=== PATIENT | male | born 1940 | race African-American/Black ===

== ENCOUNTER 2021-02-09 13:06 | Inpatient (IN) | payer MEDICARE ==
[~2021-02-09] VITALS: Ht 177.8 cm; Wt 87.2 kg
[2021-02-09] MEDS ORDERED: DIPH,PERTUSS(ACELL),TET VAC/PF 0.5 ML SYRINGE. VAX IM ONE (13:30)
--- NOTE | 2021-02-09 13:37 | ED.ADGEN ---
Past Medical History Past Surgical History: No Surgical History Smoking Status: Never Smoker Alcohol Use: None General Adult EDM: Chief Complaint: SYNCOPE HPI: HPI: Patient is a 80 year old male coming in via EMS after syncopal episode. Josee mayfield was going to the grocery store and out of his car and walking back up where he lives and was almost to the doors when he collapsed. Patient states he felt lightheaded prior to falling. Unknown downtime but per EMS report possibly unresponsive for a couple of minutes, no convulsions noted by bystanders. Patient states he otherwise has been feeling well. Had a similar episode about 20 years ago. Patient has a history of hypertension but does not reverse medication he takes. Patient is bradycardic on exam patient states he does not know his normal resting heart rate. Review of Systems: Review of Systems: All other systems within normal limits except for as noted in the HPI Current Medications: Current Medications Medications (Trade) Dose Ordered Sig/Devin Start Time Stop Time Status Last Admin Dose Admin Acetaminophen (Tylenol) 650 mg PRN Q4HRS PRN 02/09/21 17:15 02/10/21 17:14 Diphtheria/ Tetanus/Acell Pertussis (ADACEL TDap SYRINGE) 0.5 ml ONCE ONCE 02/09/21 13:30 02/09/21 15:07 DC 02/09/21 13:30 0.5 ML Fentanyl Citrate (Fentanyl 2ml Vial) 50 mcg PRN Q1HR PRN 02/09/21 17:15 02/10/21 17:14 Ondansetron HCl (Zofran) 4 mg PRN Q8HRS PRN 02/09/21 17:15 02/10/21 17:14 Allergies: Allergies: Allergies Coded Allergies Type Severity Reaction Last Updated Verified No Known Drug Allergies 02/09/21 No Physical Exam: PE: Constitutional: Well developed, well nourished, no acute distress, non-toxic appearance. [] HENT: Normocephalic, small right forehead hematoma, bilateral external ears normal, nose normal. [] Eyes: PERRLA, conjunctiva normal, no discharge. [] Neck: No rigidity, supple, no stridor. [] Cardiovascular: Regular rate and rhythm, brisk cap refill [] Lungs & Thorax: Non labored symmetric respirations, no tachypnea or respiratory distress [] Abdomen: Soft, nondistended. Skin: Warm, dry, no erythema, no rash. Superficial linear abrasion on right orthodox, approximately 1 cm [] Back: Unremarkable Extremities: No deformities, range of motion grossly intact, no lower extremity edema [] Neurologic: Alert and oriented X 3, no focal deficits noted. [] Psychologic: Affect normal, judgement normal, mood normal. [] Current Patient Data: Labs: Laboratory Tests Test 02/09/21 13:14 02/09/21 15:23 White Blood Count 3.6 x10^3/uL (4.0-11.0) L Red Blood Count 4.56 x10^6/uL (4.30-5.70) Hemoglobin 13.2 g/dL (13.0-17.5) Hematocrit 38.7 % (39.0-53.0) L Mean Corpuscular Volume 85 fL (79-100) Mean Corpuscular Hemoglobin 29 pg (25-35) Mean Corpuscular Hemoglobin Concent 34 g/dL (31-37) Red Cell Distribution Width 14.7 % (11.5-14.5) H Platelet Count 118 x10^3/uL (140-400) L Neutrophils (%) (Auto) 41 % (31-73) Lymphocytes (%) (Auto) 45 % (24-48) Monocytes (%) (Auto) 13 % (0-9) H Eosinophils (%) (Auto) 2 % (0-3) Basophils (%) (Auto) 1 % (0-3) Neutrophils # (Auto) 1.5 x10^3/uL (1.8-7.7) L Lymphocytes # (Auto) 1.6 x10^3/uL (1.0-4.8) Monocytes # (Auto) 0.4 x10^3/uL (0.0-1.1) Eosinophils # (Auto) 0.1 x10^3/uL (0.0-0.7) Basophils # (Auto) 0.0 x10^3/uL (0.0-0.2) Sodium Level 141 mmol/L (136-145) Potassium Level 3.4 mmol/L (3.5-5.1) L Chloride Level 103 mmol/L (98-107) Carbon Dioxide Level 29 mmol/L (21-32) Anion Gap 9 (6-14) Blood Urea Nitrogen 23 mg/dL (8-26) Creatinine 1.8 mg/dL (0.7-1.3) H Estimated GFR (Cockcroft-Gault) 36.7 BUN/Creatinine Ratio 13 (6-20) Glucose Level 97 mg/dL (70-99) Calcium Level 8.5 mg/dL (8.5-10.1) Phosphorus Level 3.1 mg/dL (2.6-4.7) Magnesium Level 2.0 mg/dL (1.8-2.4) Total Bilirubin 0.6 mg/dL (0.2-1.0) Aspartate Amino Transferase (AST) 21 U/L (15-37) Alanine Aminotransferase (ALT) 23 U/L (16-63) Alkaline Phosphatase 92 U/L (46-116) Troponin I Quantitative < 0.017 ng/mL (0.000-0.055) VR-Yfs-W-Type Natriuretic Peptide 492 pg/mL (0-449) H Total Protein 7.3 g/dL (6.4-8.2) Albumin 3.5 g/dL (3.4-5.0) Albumin/Globulin Ratio 0.9 (1.0-1.7) L Urine Collection Type Unknown Urine Color Yellow Urine Clarity Cloudy Urine pH 5.5 (<5.0-8.0) Urine Specific Casco 1.010 (1.000-1.030) Urine Protein Negative mg/dL (NEG-TRACE) Urine Glucose (UA) Negative mg/dL (NEG) Urine Ketones (Stick) Negative mg/dL (NEG) Urine Blood Negative (NEG) Urine Nitrite Negative (NEG) Urine Bilirubin Negative (NEG) Urine Urobilinogen Dipstick 0.2 mg/dL (0.2 mg/dL) Urine Leukocyte Esterase Negative (NEG) Urine RBC 0 /HPF (0-2) Urine WBC 0 /HPF (0-4) Urine Squamous Epithelial Cells Few /LPF Urine Bacteria 0 /HPF (0-FEW) Laboratory Tests 02/09/21 13:14 Laboratory Tests 02/09/21 13:14 Vital Signs: Vital Signs Date Time Temp Pulse Resp B/P (MAP) Pulse Ox O2 Delivery O2 Flow Rate FiO2 02/09/21 16:09 52 16 159/68 (98) 94 Room Air 02/09/21 13:20 98.2 98.2 EKG: EKG: Sinus rhythm, heart rate 52 bpm, normal axis, no ST elevation or depression, poor R wave progression, flattening of T waves diffusely [] Heart Score: C/O Chest Pain: No HEART Score for Chest Pain: HEART Score for Chest Pain Response (Comments) Value History Slighlty/Non-Suspicious 0 ECG Nonspecific Repolarizatio 1 Age > 65 2 Risk Factors 1 or 2 Risk Factors 1 Troponin < Normal Limit 0 Total 4 Risk Factors: Risk Factors: DM, Current or recent (<one month) smoker, HTN, HLP, family history of CAD, obesity. Risk Scores: Score 0 - 3: 2.5% MACE over next 6 weeks - Discharge Home Score 4 - 6: 20.3% MACE over next 6 weeks - Admit for Clinical Observation Score 7 - 10: 72.7% MACE over next 6 weeks - Early Invasive Strategies Radiology/Procedures: Radiology/Procedures: [facility] [address] [place] [address] IMAGING REPORT Signed PATIENT: LUDWIG RAMIREZ ACCOUNT: [id number] : 1940 LOCATION: ER AGE: 80 SEX: M EXAM STATUS: REG ER ORD. PHYSICIAN: JASON LARES MD REASON: syncope PROCEDURE: CT HEAD AND CERVICAL SPINE WO CT HEAD AND C-SPINE WO History: syncope Comparison: None. Technique: Noncontrast CT of the head and cervical spine. Findings: CT HEAD: There is no evidence for intracranial mass or hemorrhage. There is no hydrocephalus or midline shift. No abnormal extra-axial fluid collections are present. No evidence of acute territorial infarction. There are left frontal and left parietal regions of encephalomalacia. The visualized paranasal sinuses and mastoid air cells are clear. The skull and scalp are within normal limits. CT CERVICAL SPINE: There is no evidence for fracture in the cervical spine. Alignment is normal. Severe degenerative disc space narrowing C5-C6 and C6-C7 with multilevel uncovertebral hypertrophy and facet hypertrophy. Severe neural foraminal stenosis bilaterally at C5-C6. No destructive osseous lesions are seen. Left carotid atherosclerotic calcification. Impression: 1. No acute intracranial findings. 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 2. No acute osseous abnormality in the cervical spine. Multilevel degenerative changes with severe bilateral foraminal stenosis at C5-C6. ------- Exposure: One or more of the following individualized dose reduction techniques were utilized for this examination: 1. Automated exposure control 2. Adjustment of the mA and/or kV according to patient size 3. Use of iterative reconstruction technique. Electronically signed by: Rogers Batres MD (02/09/2021 2:50 PM) [id number] DICTATED and SIGNED BY: ROGERS BATRES MD DATE: 02/09/21 [id number] 0 [] [facility] [address] [place] [address] IMAGING REPORT Signed PATIENT: LUDWIG RAMIREZ ACCOUNT: [id number] : 1940 LOCATION: ER AGE: 80 SEX: M EXAM STATUS: PRE ER ORD. PHYSICIAN: JASON LARES MD REASON: syncope PROCEDURE: CHEST AP ONLY INDICATION: Reason: syncope / Spl. Instructions: / History: COMPARISON: None. FINDINGS: Single view of chest obtained. Elevated right hemidiaphragm. Cardiac mediastinal silhouette is unremarkable. Mild haziness at the left lung base. IMPRESSION: * Mild hazy opacity at the left lung base which could be secondary to overlap of structures and atelectasis but this could obscure a region of early infilt rate. * Elevated right hemidiaphragm. Electronically signed by: Herb Razo MD (02/09/2021 2:29 PM) [id number] DICTATED and SIGNED BY: HERB RAZO MD DATE: 02/09/21 [id number] 0 Course & Med Decision Making: Course & Med Decision Making Pertinent Labs and Imaging studies reviewed. (See chart for details) Patient states bradycardic in the 40s in the emergency department with a stable blood pressure. Patient has superficial wound to right temporal area L does not require suturing. CT head negative for any acute fracture. Due to syncopal episode and and patient's age will admit for observation. Tetanus updated emergency department [] Ana Disclaimer: Ana Disclaimer: This electronic medical record was generated, in whole or in part, using a voice recognition dictation system. Departure Departure Impression: Primary Impression: Syncope and collapse Additional Impressions: Bradycardia Abrasion of face Disposition: ADMITTED INPATIENT Admitting Physician: ANASTASIIA Condition: STABLE Problem Qualifiers JASON LARES MD Feb 09, 2021 13:37
[2021-02-09 13:51] LABS: BASO % 1 % (0-3); EOS # 0.1 x10^3/uL (0.0-0.7); EOS % 2 % (0-3); HEMATOCRIT 38.7 % (39.0-53.0); HEMOGLOBIN 13.2 g/dL (13.0-17.5); LYMPH # 1.6 x10^3/uL (1.0-4.8); LYMPH % 45 % (24-48); MEAN CORPUSCULAR HEMOGLOBIN 29 pg (25-35); MEAN CORPUSCULAR HGB CONC 34 g/dL (31-37); MEAN CORPUSCULAR VOLUME 85 fL (79-100); MONO # 0.4 x10^3/uL (0.0-1.1); MONO % 13 % (0-9); NEUT # 1.5 x10^3/uL (1.8-7.7); NEUT % 41 % (31-73); PLATELET COUNT 118 x10^3/uL (140-400); RED BLOOD COUNT 4.56 x10^6/uL (4.30-5.70); RED CELL DISTRIBUTION WIDTH 14.7 % (11.5-14.5); WHITE BLOOD COUNT 3.6 x10^3/uL (4.0-11.0)
[2021-02-09 14:04] LABS: CALCIUM 8.5 mg/dL (8.5-10.1); CREATININE 1.8 mg/dL (0.7-1.3); GFR 36.7; POTASSIUM 3.4 mmol/L (3.5-5.1)
[2021-02-09 14:10] LABS: ALBUMIN 3.5 g/dL (3.4-5.0); ALBUMIN/GLOBULIN RATIO 0.9 (1.0-1.7); PHOSPHORUS 3.1 mg/dL (2.6-4.7); TOTAL BILIRUBIN 0.6 mg/dL (0.2-1.0); TOTAL PROTEIN 7.3 g/dL (6.4-8.2)
--- NOTE | 2021-02-09 14:31 | RAD ---
INDICATION: Reason: syncope / Spl. Instructions: / History: COMPARISON: None. FINDINGS: Single view of chest obtained. Elevated right hemidiaphragm. Cardiac mediastinal silhouette is unremarkable. Mild haziness at the left lung base. IMPRESSION: * Mild hazy opacity at the left lung base which could be secondary to overlap of structures and atel ectasis but this could obscure a region of early infiltrate. * Elevated right hemidiaphragm. Electronically signed by: Josef Hudson MD (02/09/2021 2:29 PM) [id number]
--- NOTE | 2021-02-09 14:55 | RAD ---
CT HEAD AND C-SPINE WO History: syncope Comparison: None. Technique: Noncontrast CT of the head and cervical spine. Findings: CT HEAD: There is no evidence for intracranial mass or hemorrhage. There is no hydrocephalus or midline shift. No abnormal extra-axial fluid collections are present. No evidence of acute territorial infarction. There are left frontal and left parietal regions of ence phalomalacia. The visualized paranasal sinuses and mastoid air cells are clear. The skull and scalp are within normal limits. CT CERVICAL SPINE: There is no evidence for fracture in the cervical spine. Alignment is normal. Severe degenerative disc space narrowing C5-C6 and C6-C7 with multilevel uncovertebral hypertrophy an d facet hypertrophy. Severe neural foraminal stenosis bilaterally at C5-C6. No destructive osseous lesions are seen. Left carotid atherosclerotic calcification. Impression: 1. No acute intracranial findings. 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 2. No acute osseous abnormality in the cervical spine. Multilevel degenerative changes with severe b ilateral foraminal stenosis at C5-C6. ------- Exposure: One or more of the following individualized dose reduction techniques were utilized for thi s examination: 1. Automated exposure control 2. Adjustment of the mA and/or kV according to patient size 3. Use of iterative reconstruction technique. Electronically signed by: Rogers Mills MD (02/09/2021 2:50 PM) [id number]
[2021-02-09 15:36] LABS: BILIRUBIN,URINE NEGATIVE (NEG); CLARITY,URINE CLOUDY; COLOR,URINE YELLOW; NITRITE,URINE NEGATIVE (NEG); PH,URINE 5.5 (<5.0-8.0); PROTEIN,URINE NEGATIVE (NEG-TRACE); UROBILINOGEN,URINE 0.2 mg/dL (0.2 mg/dL)
[2021-02-09 15:48] LABS: BACTERIA,URINE 0 /HPF (0-FEW); RBC,URINE 0 /HPF (0-2); WBC,URINE 0 /HPF (0-4)
[2021-02-09] MEDS ORDERED: ONDANSETRON PF 4 MG/2 ML VIAL. IVP PRN (17:15)
[2021-02-09] MEDS ORDERED: ACETAMINOPHEN 325 MG TABLET. PO PRN (17:15)
[2021-02-09] MEDS ORDERED: fentaNYL PF VIAL 100 MCG/2 ML VIAL IVP PRN (17:15)
[2021-02-09] MEDS ORDERED: POTASSIUM CHLORIDE 20 MEQ TABLET.ER. PO ONE (19:15)
--- NOTE | 2021-02-09 19:55 | HP ---
DATE OF SERVICE: 02/09/2021 ADMIT DATE: 02/09/2021 CHIEF COMPLAINT: Syncope. HISTORY OF PRESENT ILLNESS: The patient is a pleasant 80-year-old male who was walking to the store and had a syncopal episode. EMS was called. He is now being brought to our Emergency Room for evaluation. I discussed the case with ER physician. The patient is having some bradycardia. We are going to admit the patient and consult Cardiology. PAST MEDICAL HISTORY: Hypertension, chronic pain. ALLERGIES: NONE. FAMILY HISTORY: Diabetes. SOCIAL HISTORY: Does not drink, smoke or take drugs. MEDICATIONS: Reviewed, please refer to the MRAD. REVIEW OF SYSTEMS: GENERAL: No history of weight change, weakness or fevers. SKIN: No bruising, hair changes or rashes. EYES: No blurred, double or loss of vision. NOSE AND THROAT: No history of nosebleeds, hoarseness or sore throat. HEART: No history of palpitations, chest pain or shortness of breath on exertion. LUNGS: Denies cough, hemoptysis, wheezing or shortness of breath. GASTROINTESTINAL: Denies changes in appetite, nausea, vomiting, diarrhea or constipation. GENITOURINARY: No history of frequency, urgency, hesitancy or nocturia. NEUROLOGIC: Denies history of numbness, tingling, tremor or weakness. PSYCHIATRIC: No history of panic, anxiety or depression. ENDOCRINE: No history of heat or cold intolerance, polyuria or polydipsia. EXTREMITIES: Denies muscle weakness, joint pain, pain on walking or stiffness. PHYSICAL EXAMINATION: VITALS: Within normal limits and are stable. GENERAL: No apparent distress. Alert and oriented. HEENT: Normal cephalic atraumatic, external auditory canals are patent. EYES: Extraocular muscles are intact, pupils are equally round and reactive to light and accommodation. MUSCULOSKELETAL: Well developed, well nourished, good range of motion. ENDOCRINE: No thyromegaly was palpated. LYMPHATICS: No cervical chain or axillary nodes were noted. HEMATOPOIETIC: No bruising. NECK: Supple, no JVD, no thyromegaly was noted. LUNGS: Clear to auscultation in all lung rossi without rhonchi or wheezing. HEART: RRR, S1, S2 present. Peripheral pulses intact, no obvious murmurs were noted. ABDOMEN: Soft, nontender. Positive bowel sounds no organomegaly, normal bowel sounds. EXTREMITIES: Without any cyanosis, clubbing, or edema. Pedal pulses intact, Homans sign is negative. NEUROLOGIC: Normal speech, normal tone. A and O x3, moves all extremities, no obvious focal deficits. PSYCHIATRIC: Normal affect, normal mood. Stable. SKIN: No ulcerations or rashes, good skin turgor, no jaundice. VASCULAR: Good capillary refill, neurovascular bundle appears to be intact. LABORATORY DATA: White count is 3.6, hemoglobin 13.2. Electrolytes normal other than a creatinine of 1.8 and a potassium of 3.4. Urinalysis negative. ASSESSMENT AND PLAN: Syncope. The patient has been admitted. We will consult Cardiology, cardiac monitoring, home meds, DVT prophylaxis, full code, replace his potassium. Consult Nephrology. SHAKIR/FELICIANO/JOHNNY DR: SHAKIR/angel TID: [id number]
[2021-02-09 20:55] VITALS: BP 172/75
[2021-02-09 22:29] VITALS: BP 161/72
[2021-02-10 02:34] VITALS: BP 131/62
[2021-02-10 08:18] LABS: BASO % 1 % (0-3); EOS % 0 % (0-3); HEMATOCRIT 37.4 % (39.0-53.0); HEMOGLOBIN 12.4 g/dL (13.0-17.5); LYMPH # 0.8 x10^3/uL (1.0-4.8); LYMPH % 20 % (24-48); MEAN CORPUSCULAR HEMOGLOBIN 28 pg (25-35); MEAN CORPUSCULAR HGB CONC 33 g/dL (31-37); MEAN CORPUSCULAR VOLUME 86 fL (79-100); MONO # 0.5 x10^3/uL (0.0-1.1); MONO % 13 % (0-9); NEUT # 2.7 x10^3/uL (1.8-7.7); NEUT % 66 % (31-73); PLATELET COUNT 114 x10^3/uL (140-400); RED BLOOD COUNT 4.37 x10^6/uL (4.30-5.70); RED CELL DISTRIBUTION WIDTH 14.4 % (11.5-14.5); WHITE BLOOD COUNT 4.1 x10^3/uL (4.0-11.0)
[2021-02-10 08:37] LABS: CALCIUM 8.6 mg/dL (8.5-10.1); CREATININE 1.5 mg/dL (0.7-1.3); GFR 54.8; POTASSIUM 3.7 mmol/L (3.5-5.1)
[2021-02-10 08:45] VITALS: BP 140/53
--- NOTE | 2021-02-10 10:10 | PDOC2 ---
CONSULT Date of Consult Date of Consult DATE: 02/10/21 TIME: 10:10 Reason for Consult Reason for Consult: PONCHO Identification/Chief Complaint Chief Complaint No complaints at present, states he hopes he can be discharged home today Source Source: Chart review, Patient History of Present Illness Reason for Visit: Patient is a 80 year old AA male came to ER via EMS after syncopal episode. Patient was going to the grocery store and out of his car and walking back up where he lives and was almost to the doors when he collapsed. Patient states he felt lightheaded prior to falling. Unknown downtime but per EMS report possibly unresponsive for a couple of minutes, no convulsions noted by bystanders. Patient states he otherwise has been feeling well. Had a similar episode about 20 years ago. Patient has a history of hypertension . Patient was bradycardic in the ER He denies any N/V/D.No F/C. Denies any CP or SOB. Denies any urinary complaints, not aware of any Dx of CKD . Denies Kidney stones . No recent med changes . Denies use of NSAID's Denies any LE edema , No ANGELO or Visual changes . Denies any OTC health supplements Past Medical History Past Medical History Cardiovascular: HTN, Hyperlipidemia Musculoskeletal: Osteoarthritis Renal/: Benign prostatic enlarg. Endocrine: Diabetes Family History Family History noncontributory Social History Social History Smoke: Quit ALCOHOL: none Drugs: None Lives: with Family Current Problem List Problem List Problems Medical Problems: (1) Abrasion of face Status: Acute (2) Bradycardia Status: Acute (3) Syncope and collapse Status: Acute Current Medications Current Medications Current Medications Diphtheria/ Tetanus/Acell Pertussis (ADACEL TDap SYRINGE) 0.5 ml ONCE ONCE VAX IM Last administered on 02/09/21at 13:30; Start 02/09/21 at 13:30; Stop 02/09/21 at 15:07; Status DC Ondansetron HCl (Zofran) 4 mg PRN Q8HRS PRN IVP NAUSEA/VOMITING; Start 02/09/21 at 17:15; Stop 02/10/21 at 17:14 Fentanyl Citrate (Fentanyl 2ml Vial) 50 mcg PRN Q1HR PRN IVP PAIN; Start 02/09/21 at 17:15; Stop 02/10/21 at 17:14 Acetaminophen (Tylenol) 650 mg PRN Q4HRS PRN PO FEVER > 100.3'F; Start 02/09/21 at 17:15; Stop 02/10/21 at 17:14 Potassium Chloride (Klor-Con) 40 meq 1X ONCE PO Last administered on 02/09/21at 20:06; Start 02/09/21 at 19:15; Stop 02/09/21 at 19:16; Status DC Allergies Allergies: Coded Allergies: No Known Drug Allergies (Unverified , 02/09/21) ROS Review of System As per HPI, rest of the ROS is negative Physical Exam Physical Exam General NAD , sitting up in chair HEEN OM moist; superficial wound to right temporal area dressing on . neck Supple Lungs CTA, Non labored CV S1S2 Abd Soft, NT, BS + Ext No Edema, No cyanosis Neuro Grossly normal, No focal deficit Psych Mood stable, Cooperative No Kang, No CVA or SP tenderness Vital Signs Vital Signs Date Time Temp Pulse Resp B/P (MAP) Pulse Ox O2 Delivery O2 Flow Rate FiO2 02/10/21 08:45 97.8 52 18 140/53 (82) 97 Room Air 97.8 Assessment & Plan PONCHO- Vasomotor ,Improving renal function , UA unremarkable. . E-Lytes stable. Baseline Creat unknown to me, he is a [place] [facility] ; Supportive care, maintain hydration , avoid Nephrotoxins , strict I/O , Syncopal episode- cardiology consulted Sinus bradycardia; on Cardizem at home Hypertension Diabetes, II Labs Labs Laboratory Tests Test 02/09/21 13:14 02/09/21 15:23 02/09/21 18:00 02/09/21 19:00 White Blood Count 3.6 x10^3/uL (4.0-11.0) Red Blood Count 4.56 x10^6/uL (4.30-5.70) Hemoglobin 13.2 g/dL (13.0-17.5) Hematocrit 38.7 % (39.0-53.0) Mean Corpuscular Volume 85 fL (79-100) Mean Corpuscular Hemoglobin 29 pg (25-35) Mean Corpuscular Hemoglobin Concent 34 g/dL (31-37) Red Cell Distribution Width 14.7 % (11.5-14.5) Platelet Count 118 x10^3/uL (140-400) Neutrophils (%) (Auto) 41 % (31-73) Lymphocytes (%) (Auto) 45 % (24-48) Monocytes (%) (Auto) 13 % (0-9) Eosinophils (%) (Auto) 2 % (0-3) Basophils (%) (Auto) 1 % (0-3) Neutrophils # (Auto) 1.5 x10^3/uL (1.8-7.7) Lymphocytes # (Auto) 1.6 x10^3/uL (1.0-4.8) Monocytes # (Auto) 0.4 x10^3/uL (0.0-1.1) Eosinophils # (Auto) 0.1 x10^3/uL (0.0-0.7) Basophils # (Auto) 0.0 x10^3/uL (0.0-0.2) Sodium Level 141 mmol/L (136-145) Potassium Level 3.4 mmol/L (3.5-5.1) Chloride Level 103 mmol/L (98-107) Carbon Dioxide Level 29 mmol/L (21-32) Anion Gap 9 (6-14) Blood Urea Nitrogen 23 mg/dL (8-26) Creatinine 1.8 mg/dL (0.7-1.3) Estimated GFR (Cockcroft-Gault) 36.7 BUN/Creatinine Ratio 13 (6-20) Glucose Level 97 mg/dL (70-99) Calcium Level 8.5 mg/dL (8.5-10.1) Phosphorus Level 3.1 mg/dL (2.6-4.7) Magnesium Level 2.0 mg/dL (1.8-2.4) Total Bilirubin 0.6 mg/dL (0.2-1.0) Aspartate Amino Transf (AST/SGOT) 21 U/L (15-37) Alanine Aminotransferase (ALT/SGPT) 23 U/L (16-63) Alkaline Phosphatase 92 U/L (46-116) Troponin I Quantitative < 0.017 ng/mL (0.000-0.055) XJ-Imv-M-Type Natriuretic Peptide 492 pg/mL (0-449) Total Protein 7.3 g/dL (6.4-8.2) Albumin 3.5 g/dL (3.4-5.0) Albumin/Globulin Ratio 0.9 (1.0-1.7) Urine Collection Type Unknown Urine Color Yellow Urine Clarity Cloudy Urine pH 5.5 (<5.0-8.0) Urine Specific [place] 1.010 (1.000-1.030) Urine Protein Negative mg/dL (NEG-TRACE) Urine Glucose (UA) Negative mg/dL (NEG) Urine Ketones (Stick) Negative mg/dL (NEG) Urine Blood Negative (NEG) Urine Nitrite Negative (NEG) Urine Bilirubin Negative (NEG) Urine Urobilinogen Dipstick 0.2 mg/dL (0.2 mg/dL) Urine Leukocyte Esterase Negative (NEG) Urine RBC 0 /HPF (0-2) Urine WBC 0 /HPF (0-4) Urine Squamous Epithelial Cells Few /LPF Urine Bacteria 0 /HPF (0-FEW) SARS-CoV-2 RNA (ANJUM) Negative (Negative) SARS-CoV-2 Antigen (Rapid) Negative (NEGATIVE) Test 02/09/21 20:07 02/09/21 22:55 02/10/21 07:35 02/10/21 08:00 Troponin I Quantitative < 0.017 ng/mL (0.000-0.055) < 0.017 ng/mL (0.000-0.055) White Blood Count 4.1 x10^3/uL (4.0-11.0) Red Blood Count 4.37 x10^6/uL (4.30-5.70) Hemoglobin 12.4 g/dL (13.0-17.5) Hematocrit 37.4 % (39.0-53.0) Mean Corpuscular Volume 86 fL (79-100) Mean Corpuscular Hemoglobin 28 pg (25-35) Mean Corpuscular Hemoglobin Concent 33 g/dL (31-37) Red Cell Distribution Width 14.4 % (11.5-14.5) Platelet Count 114 x10^3/uL (140-400) Neutrophils (%) (Auto) 66 % (31-73) Lymphocytes (%) (Auto) 20 % (24-48) Monocytes (%) (Auto) 13 % (0-9) Eosinophils (%) (Auto) 0 % (0-3) Basophils (%) (Auto) 1 % (0-3) Neutrophils # (Auto) 2.7 x10^3/uL (1.8-7.7) Lymphocytes # (Auto) 0.8 x10^3/uL (1.0-4.8) Monocytes # (Auto) 0.5 x10^3/uL (0.0-1.1) Eosinophils # (Auto) 0.0 x10^3/uL (0.0-0.7) Basophils # (Auto) 0.0 x10^3/uL (0.0-0.2) Sodium Level 143 mmol/L (136-145) Potassium Level 3.7 mmol/L (3.5-5.1) Chloride Level 106 mmol/L (98-107) Carbon Dioxide Level 27 mmol/L (21-32) Anion Gap 10 (6-14) Blood Urea Nitrogen 14 mg/dL (8-26) Creatinine 1.5 mg/dL (0.7-1.3) Estimated GFR (Cockcroft-Gault) 54.8 Glucose Level 92 mg/dL (70-99) Calcium Level 8.6 mg/dL (8.5-10.1) Laboratory Tests Test 02/09/21 13:14 02/09/21 15:23 02/09/21 18:00 02/09/21 19:00 White Blood Count 3.6 x10^3/uL (4.0-11.0) Red Blood Count 4.56 x10^6/uL (4.30-5.70) Hemoglobin 13.2 g/dL (13.0-17.5) Hematocrit 38.7 % (39.0-53.0) Mean Corpuscular Volume 85 fL (79-100) Mean Corpuscular Hemoglobin 29 pg (25-35) Mean Corpuscular Hemoglobin Concent 34 g/dL (31-37) Red Cell Distribution Width 14.7 % (11.5-14.5) Platelet Count 118 x10^3/uL (140-400) Neutrophils (%) (Auto) 41 % (31-73) Lymphocytes (%) (Auto) 45 % (24-48) Monocytes (%) (Auto) 13 % (0-9) Eosinophils (%) (Auto) 2 % (0-3) Basophils (%) (Auto) 1 % (0-3) Neutrophils # (Auto) 1.5 x10^3/uL (1.8-7.7) Lymphocytes # (Auto) 1.6 x10^3/uL (1.0-4.8) Monocytes # (Auto) 0.4 x10^3/uL (0.0-1.1) Eosinophils # (Auto) 0.1 x10^3/uL (0.0-0.7) Basophils # (Auto) 0.0 x10^3/uL (0.0-0.2) Sodium Level 141 mmol/L (136-145) Potassium Level 3.4 mmol/L (3.5-5.1) Chloride Level 103 mmol/L (98-107) Carbon Dioxide Level 29 mmol/L (21-32) Anion Gap 9 (6-14) Blood Urea Nitrogen 23 mg/dL (8-26) Creatinine 1.8 mg/dL (0.7-1.3) Estimated GFR (Cockcroft-Gault) 36.7 BUN/Creatinine Ratio 13 (6-20) Glucose Level 97 mg/dL (70-99) Calcium Level 8.5 mg/dL (8.5-10.1) Phosphorus Level 3.1 mg/dL (2.6-4.7) Magnesium Level 2.0 mg/dL (1.8-2.4) Total Bilirubin 0.6 mg/dL (0.2-1.0) Aspartate Amino Transf (AST/SGOT) 21 U/L (15-37) Alanine Aminotransferase (ALT/SGPT) 23 U/L (16-63) Alkaline Phosphatase 92 U/L (46-116) Troponin I Quantitative < 0.017 ng/mL (0.000-0.055) DX-Udi-P-Type Natriuretic Peptide 492 pg/mL (0-449) Total Protein 7.3 g/dL (6.4-8.2) Albumin 3.5 g/dL (3.4-5.0) Albumin/Globulin Ratio 0.9 (1.0-1.7) Urine Collection Type Unknown Urine Color Yellow Urine Clarity Cloudy Urine pH 5.5 (<5.0-8.0) Urine Specific [place] 1.010 (1.000-1.030) Urine Protein Negative mg/dL (NEG-TRACE) Urine Glucose (UA) Negative mg/dL (NEG) Urine Ketones (Stick) Negative mg/dL (NEG) Urine Blood Negative (NEG) Urine Nitrite Negative (NEG) Urine Bilirubin Negative (NEG) Urine Urobilinogen Dipstick 0.2 mg/dL (0.2 mg/dL) Urine Leukocyte Esterase Negative (NEG) Urine RBC 0 /HPF (0-2) Urine WBC 0 /HPF (0-4) Urine Squamous Epithelial Cells Few /LPF Urine Bacteria 0 /HPF (0-FEW) SARS-CoV-2 RNA (ANJUM) Negative (Negative) SARS-CoV-2 Antigen (Rapid) Negative (NEGATIVE) Test 02/09/21 20:07 02/09/21 22:55 02/10/21 07:35 02/10/21 08:00 Troponin I Quantitative < 0.017 ng/mL (0.000-0.055) < 0.017 ng/mL (0.000-0.055) White Blood Count 4.1 x10^3/uL (4.0-11.0) Red Blood Count 4.37 x10^6/uL (4.30-5.70) Hemoglobin 12.4 g/dL (13.0-17.5) Hematocrit 37.4 % (39.0-53.0) Mean Corpuscular Volume 86 fL (79-100) Mean Corpuscular Hemoglobin 28 pg (25-35) Mean Corpuscular Hemoglobin Concent 33 g/dL (31-37) Red Cell Distribution Width 14.4 % (11.5-14.5) Platelet Count 114 x10^3/uL (140-400) Neutrophils (%) (Auto) 66 % (31-73) Lymphocytes (%) (Auto) 20 % (24-48) Monocytes (%) (Auto) 13 % (0-9) Eosinophils (%) (Auto) 0 % (0-3) Basophils (%) (Auto) 1 % (0-3) Neutrophils # (Auto) 2.7 x10^3/uL (1.8-7.7) Lymphocytes # (Auto) 0.8 x10^3/uL (1.0-4.8) Monocytes # (Auto) 0.5 x10^3/uL (0.0-1.1) Eosinophils # (Auto) 0.0 x10^3/uL (0.0-0.7) Basophils # (Auto) 0.0 x10^3/uL (0.0-0.2) Sodium Level 143 mmol/L (136-145) Potassium Level 3.7 mmol/L (3.5-5.1) Chloride Level 106 mmol/L (98-107) Carbon Dioxide Level 27 mmol/L (21-32) Anion Gap 10 (6-14) Blood Urea Nitrogen 14 mg/dL (8-26) Creatinine 1.5 mg/dL (0.7-1.3) Estimated GFR (Cockcroft-Gault) 54.8 Glucose Level 92 mg/dL (70-99) Calcium Level 8.6 mg/dL (8.5-10.1) Review All relevant outside records, renal labs, imaging studies, telemetry/EKG's were reviewed. Images Images INDICATION: Reason: syncope / Spl. Instructions: / History: COMPARISON: None. FINDINGS: Single view of chest obtained. Elevated right hemidiaphragm. Cardiac mediastinal silhouette is unremarkable. Mild haziness at the left lung base. IMPRESSION: * Mild hazy opacity at the left lung base which could be secondary to overlap of structures and atelectasis but this could obscure a region of early infiltrate. * Elevated right hemidiaphragm. CT HEAD AND CERVICAL SPINE WO CT HEAD AND C-SPINE WO History: syncope Comparison: None. Technique: Noncontrast CT of the head and cervical spine. Findings: CT HEAD: There is no evidence for intracranial mass or hemorrhage. There is no hydrocephalus or midline shift. No abnormal extra-axial fluid collections are present. No evidence of acute territorial infarction. There are left frontal and left parietal regions of encephalomalacia. The visualized paranasal sinuses and mastoid air cells are clear. The skull and scalp are within normal limits. CT CERVICAL SPINE: There is no evidence for fracture in the cervical spine. Alignment is normal. Severe degenerative disc space narrowing C5-C6 and C6-C7 with multilevel uncovertebral hypertrophy and facet hypertrophy. Severe neural foraminal stenosis bilaterally at C5-C6. No destructive osseous lesions are seen. Left carotid atherosclerotic calcification. Impression: 1. No acute intracranial findings. 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 2. No acute osseous abnormality in the cervical spine. Multilevel degenerative changes with severe bilateral foraminal stenosis at C5-C6. ------- Electronically signed by: Rogers Mills MD (02/09/2021 2:50 PM) ENRIQUE STEWART MD Feb 10, 2021 10:10
[2021-02-10 11:12] VITALS: BP 138/60
[2021-02-10] MEDS ORDERED: DILT180T7 PO (11:13)
[2021-02-10] MEDS ORDERED: DILT240T8 PO (11:13)
--- NOTE | 2021-02-10 11:16 | SNU/HH DC ---
DISCHARGE WITH HOME HEALTH DISCHARGE INFORMATION: Final Diagnosis: Problems Medical Problems: (1) Abrasion of face Status: Acute (2) Bradycardia Status: Acute (3) Syncope and collapse Status: Acute Condition on Discharge: Stable CODE STATUS: Code Status: Full HOME HEALTH: Face to Face: I certify this patient is under my care and that I, or a nurse practitioner or physician's news production assistant working with me, had a face to face encounter that meets the physician face to face encounter requirements with this patient on []. Medical Complications: Other (Recent syncope) Fpc For: Assess & Educate Safety RN For Eval/Treatment: Yes Physical Therapy For: Evalulation/Treatment Occupational Therapy For: Evaluation/Treatment Home Health Aide For: Self-care WEASAND TRIMMER For: Community Resources Pt Meets Homebound Status: Poor coordination w/ amb. POST DISCHARGE ORDERS: DIET AFTER DISCHARGE: Cardiac CERTIFICATION STATEMENT: Certification Statement: Certification Statement: Based on the above finding, I certify that this patient is confined to the home and needs intermittent fpc care, physical therapy and/or speech therapy, or continues to need occupational therapy.~ This patient is under my care, and I have initiated the establishment of the plan of care.~ This patient will be followed by myself or a community physician who will periodically review the plan of care. Home Meds Reported Medications Diltiazem HCl (Diltiazem 24Hr ER (LA)) 240 Mg Tab.er.24h, 1 TAB PO DAILY for cardiac for 30 Days, #30 TAB 0 Refills 02/10/21 Diltiazem HCl (Diltiazem 24Hr ER (LA)) 180 Mg Tab.er.24h, 1 TAB PO DAILY for cardiac for 30 Days, #30 TAB 0 Refills 02/10/21 JONG SO III DO Feb 10, 2021 11:16
--- NOTE | 2021-02-10 11:43 | PDOC ---
[employer] PROGRESS NOTE Date of Service DOS: DATE: 02/10/21 TIME: 11:31 Chief Complaint Chief Complaint Abrasion of face Bradycardia Syncope and collapse History of Present Illness History of Present Illness 02/10 Patient seen and examined at bedside. Patient pleasant and conversational and reports he is feeling well. Chart reviewed. Case discussed with RN and case management. The patient is a pleasant 80-year-old male who was walking to the store and had a syncopal episode. EMS was called. He is now being brought to our Emergency Room for evaluation. I discussed the case with ER physician. The patient is having some bradycardia. We are going to admit the patient and consult Cardiology. Vitals/I&O Vitals/I&O: Vital Signs Date Time Temp Pulse Resp B/P (MAP) Pulse Ox O2 Delivery O2 Flow Rate FiO2 02/10/21 11:12 98.4 51 18 138/60 (86) 96 Room Air 98.4 I & O 02/09/21 02/09/21 02/10/21 15:00 23:00 07:00 Intake Total 100 ml Output Total 125 ml 225 ml Balance -125 ml -125 ml Physical Exam General: Alert, Cooperative, No acute distress Heart: Regular rate, No murmurs Lungs: Clear Abdomen: Normal bowel sounds, No tenderness, No masses Extremities: No clubbing Skin: No rashes Labs Labs: Laboratory Tests Test 02/09/21 13:14 02/09/21 15:23 02/09/21 18:00 02/09/21 19:00 White Blood Count 3.6 x10^3/uL (4.0-11.0) Red Blood Count 4.56 x10^6/uL (4.30-5.70) Hemoglobin 13.2 g/dL (13.0-17.5) Hematocrit 38.7 % (39.0-53.0) Mean Corpuscular Volume 85 fL (79-100) Mean Corpuscular Hemoglobin 29 pg (25-35) Mean Corpuscular Hemoglobin Concent 34 g/dL (31-37) Red Cell Distribution Width 14.7 % (11.5-14.5) Platelet Count 118 x10^3/uL (140-400) Neutrophils (%) (Auto) 41 % (31-73) Lymphocytes (%) (Auto) 45 % (24-48) Monocytes (%) (Auto) 13 % (0-9) Eosinophils (%) (Auto) 2 % (0-3) Basophils (%) (Auto) 1 % (0-3) Neutrophils # (Auto) 1.5 x10^3/uL (1.8-7.7) Lymphocytes # (Auto) 1.6 x10^3/uL (1.0-4.8) Monocytes # (Auto) 0.4 x10^3/uL (0.0-1.1) Eosinophils # (Auto) 0.1 x10^3/uL (0.0-0.7) Basophils # (Auto) 0.0 x10^3/uL (0.0-0.2) Sodium Level 141 mmol/L (136-145) Potassium Level 3.4 mmol/L (3.5-5.1) Chloride Level 103 mmol/L (98-107) Carbon Dioxide Level 29 mmol/L (21-32) Anion Gap 9 (6-14) Blood Urea Nitrogen 23 mg/dL (8-26) Creatinine 1.8 mg/dL (0.7-1.3) Estimated GFR (Cockcroft-Gault) 36.7 BUN/Creatinine Ratio 13 (6-20) Glucose Level 97 mg/dL (70-99) Calcium Level 8.5 mg/dL (8.5-10.1) Phosphorus Level 3.1 mg/dL (2.6-4.7) Magnesium Level 2.0 mg/dL (1.8-2.4) Total Bilirubin 0.6 mg/dL (0.2-1.0) Aspartate Amino Transf (AST/SGOT) 21 U/L (15-37) Alanine Aminotransferase (ALT/SGPT) 23 U/L (16-63) Alkaline Phosphatase 92 U/L (46-116) Troponin I Quantitative < 0.017 ng/mL (0.000-0.055) GR-Doc-Z-Type Natriuretic Peptide 492 pg/mL (0-449) Total Protein 7.3 g/dL (6.4-8.2) Albumin 3.5 g/dL (3.4-5.0) Albumin/Globulin Ratio 0.9 (1.0-1.7) Urine Collection Type Unknown Urine Color Yellow Urine Clarity Cloudy Urine pH 5.5 (<5.0-8.0) Urine Specific [place] 1.010 (1.000-1.030) Urine Protein Negative mg/dL (NEG-TRACE) Urine Glucose (UA) Negative mg/dL (NEG) Urine Ketones (Stick) Negative mg/dL (NEG) Urine Blood Negative (NEG) Urine Nitrite Negative (NEG) Urine Bilirubin Negative (NEG) Urine Urobilinogen Dipstick 0.2 mg/dL (0.2 mg/dL) Urine Leukocyte Esterase Negative (NEG) Urine RBC 0 /HPF (0-2) Urine WBC 0 /HPF (0-4) Urine Squamous Epithelial Cells Few /LPF Urine Bacteria 0 /HPF (0-FEW) SARS-CoV-2 RNA (ANJUM) Negative (Negative) SARS-CoV-2 Antigen (Rapid) Negative (NEGATIVE) Test 02/09/21 20:07 02/09/21 22:55 02/10/21 07:35 02/10/21 08:00 Troponin I Quantitative < 0.017 ng/mL (0.000-0.055) < 0.017 ng/mL (0.000-0.055) White Blood Count 4.1 x10^3/uL (4.0-11.0) Red Blood Count 4.37 x10^6/uL (4.30-5.70) Hemoglobin 12.4 g/dL (13.0-17.5) Hematocrit 37.4 % (39.0-53.0) Mean Corpuscular Volume 86 fL (79-100) Mean Corpuscular Hemoglobin 28 pg (25-35) Mean Corpuscular Hemoglobin Concent 33 g/dL (31-37) Red Cell Distribution Width 14.4 % (11.5-14.5) Platelet Count 114 x10^3/uL (140-400) Neutrophils (%) (Auto) 66 % (31-73) Lymphocytes (%) (Auto) 20 % (24-48) Monocytes (%) (Auto) 13 % (0-9) Eosinophils (%) (Auto) 0 % (0-3) Basophils (%) (Auto) 1 % (0-3) Neutrophils # (Auto) 2.7 x10^3/uL (1.8-7.7) Lymphocytes # (Auto) 0.8 x10^3/uL (1.0-4.8) Monocytes # (Auto) 0.5 x10^3/uL (0.0-1.1) Eosinophils # (Auto) 0.0 x10^3/uL (0.0-0.7) Basophils # (Auto) 0.0 x10^3/uL (0.0-0.2) Sodium Level 143 mmol/L (136-145) Potassium Level 3.7 mmol/L (3.5-5.1) Chloride Level 106 mmol/L (98-107) Carbon Dioxide Level 27 mmol/L (21-32) Anion Gap 10 (6-14) Blood Urea Nitrogen 14 mg/dL (8-26) Creatinine 1.5 mg/dL (0.7-1.3) Estimated GFR (Cockcroft-Gault) 54.8 Glucose Level 92 mg/dL (70-99) Calcium Level 8.6 mg/dL (8.5-10.1) Review of Systems Review of Systems: ROS negative except as noted in HPI. Assessment and Plan Assessmemt and Plan Assessment: Abrasion of face Bradycardia Syncope and collapse Plan: Cardiac monitoring. Appreciate cardiology input. Continue home meds. PT/OT Disposition: D/C to home today if okay with cardiology Comment Review of Relevant I have reviewed the following items jessa (where applicable) has been applied. Medications: Current Medications Medications (Trade) Dose Ordered Sig/Devin Route PRN Reason Start Time Stop Time Status Last Admin Dose Admin Diphtheria/ Tetanus/Acell Pertussis (ADACEL TDap SYRINGE) 0.5 ml ONCE ONCE VAX IM 02/09/21 13:30 02/09/21 15:07 DC 02/09/21 13:30 Potassium Chloride (Klor-Con) 40 meq 1X ONCE PO 02/09/21 19:15 02/09/21 19:16 DC 02/09/21 20:06 Justifications for Admission Other Justification JONG SO III DO Feb 10, 2021 11:43
--- NOTE | 2021-02-10 11:53 | NUR ---
SS following for discharge planning. SS reviewed pt chart and discussed with pt RN. Pt is from home with spouse and is currently on room air. COVID19 negative. PO diet. Cardiology and Nephrology consulted. Discharge orders received for home with home healthcare. Referral and discharge orders phoned and faxed to [facility], ; fax [phone]. SS will continue to follow for discharge planning.
--- NOTE | 2021-02-10 11:55 | PDOC2 ---
NOMAN LAWRENCE AIR SUPPORT OPERATIONS OPERATOR 02/10/21 1155: CARDIAC CONSULT DATE OF CONSULT Date of Consult DATE: 02/10/21 TIME: 11:49 REASON FOR CONSULT Reason for Consult: syncope REFERRING PHYSICIAN Referring Physician: Dr. Beckett SOURCE Source: Chart review, Patient HISTORY OF PRESENT ILLNESS HISTORY OF PRESENT ILLNESS This is a 80 yo male who presented secondary to syncopal episode. Patient reports he went to the grocery store yesterday. Got out of his car to walk in the store and day a syncopal episode. Fell and sustained a laceration above his right eye. Bystander reported that there was a brief episode of LOC. Patient does not recall events of fall. Does not recall experiencing any dizziness. Does not recall feeling dizzy while driving to the grocery store. Was noted to be bradycardic upon arrival to the ED. HR remains in mid 50's with sinus bradycardia. Lowest 42 overnight on tele. No pauses noted. No reports of dizziness or syncope since arrival to the hospital. Also denies any chest pain, palpitations, shortness of breath, or nausea/vomiting. Has a history of hypertension for which he has been on Cardizem for "many years". Follows with PCP through the [facility] in . Per RN, pharmacy was contacted to verify medications. Patient was prescribed both Cardizem 120mg and 240mg and both of these were picked up from the pharmacy at the same time. Patient is unsure of what dose he takes at home. I attempted to call , [facility], but there was no answer. Patient reports no recent cardiac workup. PAST MEDICAL HISTORY Cardiovascular: HTN, Hyperlipidemia Musculoskeletal: Osteoarthritis Renal/: Benign prostatic enlarg. Endocrine: Diabetes PAST SURGICAL HISTORY Past Surgical History: No pertinent history FAMILY HISTORY Family History: Other (noncontributory ) SOCIAL HISTORY Smoke: Quit ALCOHOL: none Drugs: None Lives: with Family CURRENT MEDICATIONS CURRENT MEDICATIONS Current Medications Medications (Trade) Dose Ordered Sig/Devin Route PRN Reason Start Time Stop Time Status Last Admin Dose Admin Diphtheria/ Tetanus/Acell Pertussis (ADACEL TDap SYRINGE) 0.5 ml ONCE ONCE VAX IM 02/09/21 13:30 02/09/21 15:07 DC 02/09/21 13:30 Potassium Chloride (Klor-Con) 40 meq 1X ONCE PO 02/09/21 19:15 02/09/21 19:16 DC 02/09/21 20:06 ALLERGIES ALLERGIES: Coded Allergies: No Known Drug Allergies (Unverified , 02/09/21) ROS Review of System 14 point ROS conducted with pertinent positives noted above in HPI PHYSICAL EXAM General: Alert, Oriented X3, Cooperative, No acute distress HEENT: Atraumatic Lungs: Clear to auscultation Heart: Other (SB- rate 55) Abdomen: Soft, No tenderness Extremities: No edema, Normal pulses Skin: No breakdown, No significant lesion Neuro: Normal speech, Sensation intact Psych/Mental Status: Mental status NL, Mood NL MUSCULOSKELETAL: Osteoarthritic changes both hands VITALS/I&O VITALS/I&O: Vital Signs Date Time Temp Pulse Resp B/P (MAP) Pulse Ox O2 Delivery O2 Flow Rate FiO2 02/10/21 11:12 98.4 51 18 138/60 (86) 96 Room Air 98.4 I & O 02/09/21 02/09/21 02/10/21 15:00 23:00 07:00 Intake Total 100 ml Output Total 125 ml 225 ml Balance -125 ml -125 ml LABS Lab: Laboratory Tests Test 02/09/21 13:14 02/09/21 15:23 02/09/21 18:00 02/09/21 19:00 White Blood Count 3.6 x10^3/uL (4.0-11.0) L Red Blood Count 4.56 x10^6/uL (4.30-5.70) Hemoglobin 13.2 g/dL (13.0-17.5) Hematocrit 38.7 % (39.0-53.0) L Mean Corpuscular Volume 85 fL (79-100) Mean Corpuscular Hemoglobin 29 pg (25-35) Mean Corpuscular Hemoglobin Concent 34 g/dL (31-37) Red Cell Distribution Width 14.7 % (11.5-14.5) H Platelet Count 118 x10^3/uL (140-400) L Neutrophils (%) (Auto) 41 % (31-73) Lymphocytes (%) (Auto) 45 % (24-48) Monocytes (%) (Auto) 13 % (0-9) H Eosinophils (%) (Auto) 2 % (0-3) Basophils (%) (Auto) 1 % (0-3) Neutrophils # (Auto) 1.5 x10^3/uL (1.8-7.7) L Lymphocytes # (Auto) 1.6 x10^3/uL (1.0-4.8) Monocytes # (Auto) 0.4 x10^3/uL (0.0-1.1) Eosinophils # (Auto) 0.1 x10^3/uL (0.0-0.7) Basophils # (Auto) 0.0 x10^3/uL (0.0-0.2) Sodium Level 141 mmol/L (136-145) Potassium Level 3.4 mmol/L (3.5-5.1) L Chloride Level 103 mmol/L (98-107) Carbon Dioxide Level 29 mmol/L (21-32) Anion Gap 9 (6-14) Blood Urea Nitrogen 23 mg/dL (8-26) Creatinine 1.8 mg/dL (0.7-1.3) H Estimated GFR (Cockcroft-Gault) 36.7 BUN/Creatinine Ratio 13 (6-20) Glucose Level 97 mg/dL (70-99) Calcium Level 8.5 mg/dL (8.5-10.1) Phosphorus Level 3.1 mg/dL (2.6-4.7) Magnesium Level 2.0 mg/dL (1.8-2.4) Total Bilirubin 0.6 mg/dL (0.2-1.0) Aspartate Amino Transferase (AST) 21 U/L (15-37) Alanine Aminotransferase (ALT) 23 U/L (16-63) Alkaline Phosphatase 92 U/L (46-116) Troponin I Quantitative < 0.017 ng/mL (0.000-0.055) IS-Pqb-C-Type Natriuretic Peptide 492 pg/mL (0-449) H Total Protein 7.3 g/dL (6.4-8.2) Albumin 3.5 g/dL (3.4-5.0) Albumin/Globulin Ratio 0.9 (1.0-1.7) L Urine Collection Type Unknown Urine Color Yellow Urine Clarity Cloudy Urine pH 5.5 (<5.0-8.0) Urine Specific Kennedy 1.010 (1.000-1.030) Urine Protein Negative mg/dL (NEG-TRACE) Urine Glucose (UA) Negative mg/dL (NEG) Urine Ketones (Stick) Negative mg/dL (NEG) Urine Blood Negative (NEG) Urine Nitrite Negative (NEG) Urine Bilirubin Negative (NEG) Urine Urobilinogen Dipstick 0.2 mg/dL (0.2 mg/dL) Urine Leukocyte Esterase Negative (NEG) Urine RBC 0 /HPF (0-2) Urine WBC 0 /HPF (0-4) Urine Squamous Epithelial Cells Few /LPF Urine Bacteria 0 /HPF (0-FEW) SARS-CoV-2 RNA (ANJUM) Negative (Negative) SARS-CoV-2 Antigen (Rapid) Negative (NEGATIVE) Test 02/09/21 20:07 02/09/21 22:55 02/10/21 07:35 02/10/21 08:00 Troponin I Quantitative < 0.017 ng/mL (0.000-0.055) < 0.017 ng/mL (0.000-0.055) White Blood Count 4.1 x10^3/uL (4.0-11.0) Red Blood Count 4.37 x10^6/uL (4.30-5.70) Hemoglobin 12.4 g/dL (13.0-17.5) L Hematocrit 37.4 % (39.0-53.0) L Mean Corpuscular Volume 86 fL (79-100) Mean Corpuscular Hemoglobin 28 pg (25-35) Mean Corpuscular Hemoglobin Concent 33 g/dL (31-37) Red Cell Distribution Width 14.4 % (11.5-14.5) Platelet Count 114 x10^3/uL (140-400) L Neutrophils (%) (Auto) 66 % (31-73) Lymphocytes (%) (Auto) 20 % (24-48) L Monocytes (%) (Auto) 13 % (0-9) H Eosinophils (%) (Auto) 0 % (0-3) Basophils (%) (Auto) 1 % (0-3) Neutrophils # (Auto) 2.7 x10^3/uL (1.8-7.7) Lymphocytes # (Auto) 0.8 x10^3/uL (1.0-4.8) L Monocytes # (Auto) 0.5 x10^3/uL (0.0-1.1) Eosinophils # (Auto) 0.0 x10^3/uL (0.0-0.7) Basophils # (Auto) 0.0 x10^3/uL (0.0-0.2) Sodium Level 143 mmol/L (136-145) Potassium Level 3.7 mmol/L (3.5-5.1) Chloride Level 106 mmol/L (98-107) Carbon Dioxide Level 27 mmol/L (21-32) Anion Gap 10 (6-14) Blood Urea Nitrogen 14 mg/dL (8-26) Creatinine 1.5 mg/dL (0.7-1.3) H Estimated GFR (Cockcroft-Gault) 54.8 Glucose Level 92 mg/dL (70-99) Calcium Level 8.6 mg/dL (8.5-10.1) Laboratory Tests 02/09/21 13:14 02/10/21 07:35 Laboratory Tests 02/09/21 13:14 02/10/21 08:00 ASSESSMENT/PLAN ASSESSMENT/PLAN 1. Syncopal episode; suspect related to bradycardia 2. Sinus bradycardia; on Cardizem at home. Both 180mg and 240mg were [place] [facility]. Patient unsure what dose he currently takes. Lowest 42 overnight. No pauses. Present 55. 3. Hypertension; labile 4. Hyperlipidemia 5. Diabetes, II 6. PONCHO; better Recommendations Avoid AV breanna blocking agents Will add losartan for BP control Echo to assess LV systolic function Lipids, TSH Outpatient event monitor to assess for significant bradycardia or high-grade block that would contribute to syncopal episode AMBER THOMAS MD 02/10/21 1840: CARDIAC CONSULT ASSESSMENT/PLAN ASSESSMENT/PLAN Patient seen and examined. Agree with above nurse practitioner note. Given significant bradycardia we will hold his diltiazem. Plan on overnight monitoring and outpatient event monitoring Echocardiogram is unremarkable. NOMAN LAWRENCE APRN Feb 10, 2021 11:55 AMBER THOMAS MD Feb 10, 2021 18:40
[2021-02-10 12:16] LABS: CHOLESTEROL/HDL RATIO 2.6
[2021-02-10] MEDS ORDERED: LOSARTAN POTASSIUM 50 MG TABLET. PO SCH (14:30)
[2021-02-10 15:02] VITALS: BP 131/56
--- NOTE | 2021-02-10 18:56 | CARD ---
MR#: [id number] Date of Study: 02/10/2021 Ordering Physician: NOMAN LAWRENCE, Referring Physician: NOMAN LAWRENCE, Tech: Thanh Prado [facility] APPROVED REPORT EXAM: Two-dimensional and M-mode echocardiogram with Doppler and color Doppler. Other Information Quality : AverageHR: 50bpm Rhythm : Bradycardia INDICATION Syncope RISK FACTORS Hypertension Hyperlipidemia Diabetes 2D DIMENSIONS Left Atrium(2D)4.3 (1.6-4.0cm)IVSd0.7 (0.7-1.1cm) Aortic Root(2D)3.5 (2.0-3.7cm)LVDd5.4 (3.9-5.9cm) LVOT Diameter2.3 (1.8-2.4cm)PWd0.7 (0.7-1.1cm) LVDs3.0 (2.5-4.0cm)FS (%) 44.7 % SV106.1 mlLVEF(%)75.5 (>50%) Aortic Valve AoV Peak Carl.144.8cm/sAoV VTI32.9cm AO Peak GR.8.4mmHgLVOT Peak Carl.105.6cm/s AO Mean GR.4mmHgAVA (VMAX)3.15cm2 AI P 1/2 [id number] Mitral Valve MV E Wjfwcwud99.0cm/sMV E Peak Gr.3mmHg MV DECEL [id number] A Njylkaph37.9cm/s MV E Mean Gr.1mmHgE/A Ratio0.7 Pulmonary Valve PV Peak Xxlrtxra51.7cm/s Tricuspid Valve TR P. Ndxheipi852zk/sTR Peak Gr.22mmHg Pulmonary Vein S1 Lzxwnduz65.9cm/sD2 Qsaydziz96.7cm/s LEFT VENTRICLE The left ventricle is normal size. There is normal left ventricular wall thickness. The left ventricu lar systolic function is normal and the ejection fraction is within normal range. EF 55% There is nor mal LV segmental wall motion. Transmitral Doppler flow pattern is Grade I-abnormal relaxation pattern . No left ventricle thrombus noted on this study. There is no ventricular septal defect visualized. T here is no left ventricular aneurysm. There is no mass noted in the left ventricle. RIGHT VENTRICLE The right ventricle is normal size. There is normal right ventricular wall thickness. The right ventr icular systolic function is normal. ATRIA The left atrium is moderately dilated. The right atrium size is normal. The interatrial septum is int act with no evidence for an atrial septal defect or patent foramen ovale as noted on 2-D or Doppler i maging. AORTIC VALVE The aortic valve is thickened but opens well. The aortic valve is trileaflet. Doppler and Color Flow revealed mild eccentric central aortic regurgitation. There is no significant aortic valvular stenosi s. There is no aortic valvular vegetation. MITRAL VALVE The mitral valve is thickened but opens well. There is no evidence of mitral valve prolapse. There is no mitral valve stenosis. Doppler and Color-flow revealed trace mitral regurgitation. TRICUSPID VALVE The tricuspid valve is normal in structure and function. Doppler and Color Flow revealed trace to mil d tricuspid regurgitation. There is no tricuspid valve prolapse or vegetation. There is no tricuspid valve stenosis. PULMONIC VALVE The pulmonary valve is normal in structure and function. Mild pulmonic regurgitation There is no pulm onic valvular stenosis. GREAT VESSELS The aortic root is normal in size. The ascending aorta is normal in size. The IVC is normal in size a nd collapses >50% with inspiration. PERICARDIAL EFFUSION There is no pleural effusion. There is no evidence of significant pericardial effusion. Critical Notification Critical Value: No <Conclusion> The left ventricular systolic function is normal and the ejection fraction is within normal range. EF 55% There is normal LV segmental wall motion. Doppler and Color Flow revealed mild eccentric central aortic regurgitation. Probable elevated right milton-diaphragm, consider CXR if not performed. Signed by : Gagandeep Maravilla, Electronically Approved : 02/10/2021 18:55:52
[2021-02-10 19:19] VITALS: BP 155/61
[2021-02-10 23:00] VITALS: BP 152/65
[2021-02-11 03:34] VITALS: BP 145/65
[2021-02-11 05:01] LABS: BASO % 1 % (0-3); EOS % 1 % (0-3); HEMATOCRIT 38.1 % (39.0-53.0); HEMOGLOBIN 12.5 g/dL (13.0-17.5); LYMPH # 1.2 x10^3/uL (1.0-4.8); LYMPH % 30 % (24-48); MEAN CORPUSCULAR HEMOGLOBIN 28 pg (25-35); MEAN CORPUSCULAR HGB CONC 33 g/dL (31-37); MEAN CORPUSCULAR VOLUME 87 fL (79-100); MONO # 0.5 x10^3/uL (0.0-1.1); MONO % 14 % (0-9); NEUT # 2.1 x10^3/uL (1.8-7.7); NEUT % 55 % (31-73); PLATELET COUNT 102 x10^3/uL (140-400); RED BLOOD COUNT 4.39 x10^6/uL (4.30-5.70); RED CELL DISTRIBUTION WIDTH 14.4 % (11.5-14.5); WHITE BLOOD COUNT 3.9 x10^3/uL (4.0-11.0)
[2021-02-11 05:26] LABS: CALCIUM 8.5 mg/dL (8.5-10.1); CREATININE 1.6 mg/dL (0.7-1.3); GFR 50.8; POTASSIUM 3.6 mmol/L (3.5-5.1)
[2021-02-11 07:15] VITALS: BP 156/67
[2021-02-11] MEDS ORDERED: LOSARTAN POTASSIUM 25 MG TABLET. PO SCH (09:00)
--- NOTE | 2021-02-11 10:36 | PDOC ---
[employer] PROGRESS NOTE Date of Service DOS: DATE: 02/11/21 TIME: 10:33 Chief Complaint Chief Complaint Abrasion of face Bradycardia Syncope and collapse History of Present Illness History of Present Illness 02/11 Patient seen and examined at bedside. Chart reviewed. Case discussed with RN and case management. 02/10 Patient seen and examined at bedside. Patient pleasant and conversational and reports he is feeling well. Chart reviewed. Case discussed with RN and case management. The patient is a pleasant 80-year-old male who was walking to the store and had a syncopal episode. EMS was called. He is now being brought to our Emergency Room for evaluation. I discussed the case with ER physician. The patient is having some bradycardia. We are going to admit the patient and consult Cardiology. Vitals/I&O Vitals/I&O: Vital Signs Date Time Temp Pulse Resp B/P (MAP) Pulse Ox O2 Delivery O2 Flow Rate FiO2 02/11/21 08:19 56 156/67 02/11/21 08:00 Room Air 02/11/21 07:15 98.7 18 95 98.7 I & O 02/10/21 02/10/21 02/11/21 15:00 23:00 07:00 Intake Total 240 ml 100 ml Balance 240 ml 100 ml Physical Exam General: Alert, Oriented X3, Cooperative, No acute distress Heart: Other (SB- rate 55) Lungs: Clear Abdomen: Soft, No tenderness Extremities: No edema, Normal pulses Skin: No breakdown, No significant lesion Labs Labs: Laboratory Tests Test 02/11/21 04:30 White Blood Count 3.9 x10^3/uL (4.0-11.0) Red Blood Count 4.39 x10^6/uL (4.30-5.70) Hemoglobin 12.5 g/dL (13.0-17.5) Hematocrit 38.1 % (39.0-53.0) Mean Corpuscular Volume 87 fL (79-100) Mean Corpuscular Hemoglobin 28 pg (25-35) Mean Corpuscular Hemoglobin Concent 33 g/dL (31-37) Red Cell Distribution Width 14.4 % (11.5-14.5) Platelet Count 102 x10^3/uL (140-400) Neutrophils (%) (Auto) 55 % (31-73) Lymphocytes (%) (Auto) 30 % (24-48) Monocytes (%) (Auto) 14 % (0-9) Eosinophils (%) (Auto) 1 % (0-3) Basophils (%) (Auto) 1 % (0-3) Neutrophils # (Auto) 2.1 x10^3/uL (1.8-7.7) Lymphocytes # (Auto) 1.2 x10^3/uL (1.0-4.8) Monocytes # (Auto) 0.5 x10^3/uL (0.0-1.1) Eosinophils # (Auto) 0.0 x10^3/uL (0.0-0.7) Basophils # (Auto) 0.0 x10^3/uL (0.0-0.2) Sodium Level 145 mmol/L (136-145) Potassium Level 3.6 mmol/L (3.5-5.1) Chloride Level 108 mmol/L (98-107) Carbon Dioxide Level 28 mmol/L (21-32) Anion Gap 9 (6-14) Blood Urea Nitrogen 19 mg/dL (8-26) Creatinine 1.6 mg/dL (0.7-1.3) Estimated GFR (Cockcroft-Gault) 50.8 Glucose Level 79 mg/dL (70-99) Calcium Level 8.5 mg/dL (8.5-10.1) Review of Systems Review of Systems: ROS negative except as noted in HPI. Assessment and Plan Assessmemt and Plan Assessment: Abrasion of face Bradycardia Syncope and collapse Plan: Cardiac monitoring. Appreciate cardiology input. Awaiting event monitor disposition ([place]) Continue home meds. PT/OT Disposition: hope to D/C to home this afternoon if okay with cardiology Comment Review of Relevant I have reviewed the following items jessa (where applicable) has been applied. Medications: Current Medications Medications (Trade) Dose Ordered Sig/Devin Route PRN Reason Start Time Stop Time Status Last Admin Dose Admin Losartan Potassium (Cozaar) 25 mg DAILY PO 02/11/21 09:00 02/11/21 08:19 Justifications for Admission Other Justification JONG SO III DO Feb 11, 2021 10:36
--- NOTE | 2021-02-11 10:36 | PDOC ---
CARDIO Progress Notes Date and Time Date of Service 02/11/2021 Time of Evaluation 1020 Subjective Subjective: No Chest Pain, No shortness of breath, No Palpitations Vitals Vitals Vital Signs Date Time Temp Pulse Resp B/P (MAP) Pulse Ox O2 Delivery O2 Flow Rate FiO2 02/11/21 08:19 56 156/67 02/11/21 08:00 Room Air 02/11/21 07:15 98.7 18 95 98.7 Weight Weight [ ] Input and Output Intake and Output Intake and Output 02/11/21 07:00 Intake Total 340 ml Balance 340 ml Intake Oral 340 ml Laboratory Labs Laboratory Tests Test 02/11/21 04:30 White Blood Count 3.9 x10^3/uL (4.0-11.0) Red Blood Count 4.39 x10^6/uL (4.30-5.70) Hemoglobin 12.5 g/dL (13.0-17.5) Hematocrit 38.1 % (39.0-53.0) Mean Corpuscular Volume 87 fL (79-100) Mean Corpuscular Hemoglobin 28 pg (25-35) Mean Corpuscular Hemoglobin Concent 33 g/dL (31-37) Red Cell Distribution Width 14.4 % (11.5-14.5) Platelet Count 102 x10^3/uL (140-400) Neutrophils (%) (Auto) 55 % (31-73) Lymphocytes (%) (Auto) 30 % (24-48) Monocytes (%) (Auto) 14 % (0-9) Eosinophils (%) (Auto) 1 % (0-3) Basophils (%) (Auto) 1 % (0-3) Neutrophils # (Auto) 2.1 x10^3/uL (1.8-7.7) Lymphocytes # (Auto) 1.2 x10^3/uL (1.0-4.8) Monocytes # (Auto) 0.5 x10^3/uL (0.0-1.1) Eosinophils # (Auto) 0.0 x10^3/uL (0.0-0.7) Basophils # (Auto) 0.0 x10^3/uL (0.0-0.2) Sodium Level 145 mmol/L (136-145) Potassium Level 3.6 mmol/L (3.5-5.1) Chloride Level 108 mmol/L (98-107) Carbon Dioxide Level 28 mmol/L (21-32) Anion Gap 9 (6-14) Blood Urea Nitrogen 19 mg/dL (8-26) Creatinine 1.6 mg/dL (0.7-1.3) Estimated GFR (Cockcroft-Gault) 50.8 Glucose Level 79 mg/dL (70-99) Calcium Level 8.5 mg/dL (8.5-10.1) Physical Exam HEENT: Neck Supple W Full Motion Chest: Symmetric LUNGS: Clear to Auscultation Heart: S1S2, RRR (SR/SB) Abdomen: Soft N/T Extremities: No Calf Tenderness Neurology: alert, oriented, follow commands Assessment Assessment 1. Syncopal episode; suspect related to bradycardia 2. Sinus bradycardia; Likely from cardizem. Rate better maintaining in the 50- 60s 3. Hypertension; improving 4. Hyperlipidemia 5. Diabetes, II 6. PONCHO; better Recommendations Avoid AV breanna blocking agents Low dose losartan and hydralazine. HB Outpatient event monitor to assess for significant bradycardia or high-grade block that would contribute to syncopal episode Follow up in office Justicifation of Admission Dx: Justifications for Admission: Justification of Admission Dx: Yes JAYLEN SANCHEZ APRN Feb 11, 2021 10:36
[2021-02-11 10:55] VITALS: BP 164/81
[2021-02-11] MEDS ORDERED: hydrALAZINE 25 MG TABLET PO SCH (11:00)
[2021-02-11] MEDS ORDERED: LOSA25TA54 PO (12:04)
[2021-02-11 12:08] VITALS: BP 164/81
--- NOTE | 2021-02-11 12:17 | PDOC ---
DATE OF SERVICE DATE: 02/11/21 TIME: 12:13 SUBJECTIVE ROS No complaints. Denies N/V. No SOB OBJECTIVE Vital Signs Vital Signs Date Time Temp Pulse Resp B/P (MAP) Pulse Ox O2 Delivery O2 Flow Rate FiO2 02/11/21 12:08 60 164/81 02/11/21 10:55 98.4 20 96 Room Air 98.4 I & 0 Intake and Output 02/11/21 07:00 Intake Total 340 ml Balance 340 ml Intake Oral 340 ml PHYSICAL EXAM Physical Exam General NAD , sitting up in chair HEEN OM moist; superficial wound to right temporal area dressing on . neck Supple Lungs CTA, Non labored CV S1S2 Abd Soft, NT, BS + Ext No Edema, No cyanosis Neuro Grossly normal, No focal deficit Psych Mood stable, Cooperative No Kang, No CVA or SP tenderness Vital Signs DIAGNOSIS/ASSESSMENT Assessment & Plan PONCHO- Vasomotor , UA unremarkable. stable renal function E-Lytes stable.Baseline Creat unknown to me, he is a [place] goes to [facility] follows with PCP ;Obtain records Supportive care, maintain hydration , avoid Nephrotoxins , strict I/O (UOP not recorded) . I If Dced recommend fu with Nephrology at [facility] ; f no plans for dc today please check Renal US . Defer to primary Syncopal episode- cardiology consulted Sinus bradycardia; on Cardizem at home Hypertension Diabetes, II COMMENT/RELEVANT DATA Meds Current Medications Medications (Trade) Dose Ordered Sig/Devin Start Time Stop Time Status Last Admin Dose Admin Acetaminophen (Tylenol) 650 mg PRN Q4HRS PRN 02/09/21 17:15 02/10/21 17:14 DC Diphtheria/ Tetanus/Acell Pertussis (ADACEL TDap SYRINGE) 0.5 ml ONCE ONCE 02/09/21 13:30 02/09/21 15:07 DC 02/09/21 13:30 0.5 ML Fentanyl Citrate (Fentanyl 2ml Vial) 50 mcg PRN Q1HR PRN 02/09/21 17:15 02/10/21 17:14 DC Hydralazine HCl (Apresoline) 25 mg BID 02/11/21 11:00 02/11/21 12:08 25 MG Losartan Potassium (Cozaar) 25 mg DAILY 02/11/21 09:00 02/11/21 08:19 25 MG Ondansetron HCl (Zofran) 4 mg PRN Q8HRS PRN 02/09/21 17:15 02/10/21 17:14 DC Potassium Chloride (Klor-Con) 40 meq 1X ONCE 02/09/21 19:15 02/09/21 19:16 DC 02/09/21 20:06 40 MEQ Lab Laboratory Tests Test 02/11/21 04:30 White Blood Count 3.9 x10^3/uL (4.0-11.0) Red Blood Count 4.39 x10^6/uL (4.30-5.70) Hemoglobin 12.5 g/dL (13.0-17.5) Hematocrit 38.1 % (39.0-53.0) Mean Corpuscular Volume 87 fL (79-100) Mean Corpuscular Hemoglobin 28 pg (25-35) Mean Corpuscular Hemoglobin Concent 33 g/dL (31-37) Red Cell Distribution Width 14.4 % (11.5-14.5) Platelet Count 102 x10^3/uL (140-400) Neutrophils (%) (Auto) 55 % (31-73) Lymphocytes (%) (Auto) 30 % (24-48) Monocytes (%) (Auto) 14 % (0-9) Eosinophils (%) (Auto) 1 % (0-3) Basophils (%) (Auto) 1 % (0-3) Neutrophils # (Auto) 2.1 x10^3/uL (1.8-7.7) Lymphocytes # (Auto) 1.2 x10^3/uL (1.0-4.8) Monocytes # (Auto) 0.5 x10^3/uL (0.0-1.1) Eosinophils # (Auto) 0.0 x10^3/uL (0.0-0.7) Basophils # (Auto) 0.0 x10^3/uL (0.0-0.2) Sodium Level 145 mmol/L (136-145) Potassium Level 3.6 mmol/L (3.5-5.1) Chloride Level 108 mmol/L (98-107) Carbon Dioxide Level 28 mmol/L (21-32) Anion Gap 9 (6-14) Blood Urea Nitrogen 19 mg/dL (8-26) Creatinine 1.6 mg/dL (0.7-1.3) Estimated GFR (Cockcroft-Gault) 50.8 Glucose Level 79 mg/dL (70-99) Calcium Level 8.5 mg/dL (8.5-10.1) Results All relevant outside records, renal labs, imaging studies, telemetry/EKG's were reviewed. Justicifation of Admission Dx: Justifications for Admission: Justification of Admission Dx: N/A ENRIQUE CASTILLO MD Feb 11, 2021 12:17
--- NOTE | 2021-02-11 12:33 | DS ---
DATE OF DISCHARGE: 02/11/2021 ADMITTING DIAGNOSIS: Syncope. DISCHARGE DIAGNOSIS: Resolving syncope, probably secondary to bradycardia (we stopped his home Cardizem and started him on losartan instead). HOSPITAL COURSE: The patient is a pleasant middle-aged male who had a syncopal episode while walking to the store. We admitted the patient, he had some bradycardia. We stopped his negative chronotropic agents including the Cardizem. Today, I saw and examined him. He is at his baseline, doing well. We plan to discharge. I put in a prescription for losartan 25 mg daily, tried to send to his pharmacy, but the computer would not send it, but we will have the nurse called in. DISPOSITION: Home. ACTIVITY: As tolerated. DIET: Low sodium. DISCHARGE MEDICATIONS: Losartan 25 mg p.o. every day. FOLLOWUP: Follow up PCP in 1 week (Cardiology is considering outpatient event monitor, we will await their input this afternoon on this issue). Total time [address]: Lenard TID: [id number]
--- NOTE | 2021-02-11 13:33 | NUR ---
SS following up with discharge planning. SS reviewed pt chart and discussed with pt RN. Pt is currently on room air. COVID19 negative. PO diet. Discharge orders received for home with home healthcare. Pt accepted with [facility], ; fax [phone], and discharge orders faxed. Pt's RN notified.
--- NOTE | 2021-02-11 14:09 | NUR ---
DISCHARGE PIV DISCONTINUED, TELE MONITOR REMOVED. DISCHARGE ORDERS ET INSTRUCTIONS COVERED WITH PATIENT ET HIS . HOME HEALTHCARE WITH [facility] ALREADY SET UP. ALL QUESTIONS ANSWERED TO THEIR SATISFACTION. FOLOW UP APPOINTMENT AND EVENT MONITOR INFORMATION COVERED WITH THEM WELL. PT DRESSED ET WHEELED TO PRIVATE VEHICLE WITH SPOUSE.
== END 2021-02-11 14:10 | disposition home health service (06) | DRG 309 ==
LOC: ER 13:06 → ED HOLD 15:40 → 6 SOUTH 17:00 → OBSVTOIN 02-10 16:21
PROVIDERS: ADMIT Internal Medicine; ATTEND Internal Medicine
DX: R00.1 Bradycardia, unspecified (principal); N17.9 Acute kidney failure, unspecified; E11.9 Type 2 diabetes mellitus without complications; E78.5 Hyperlipidemia, unspecified; G93.89 Other specified disorders of brain; I10 Essential (primary) hypertension; M48.02 Spinal stenosis, cervical region; S00.81XA Abrasion of other part of head, initial encounter; Z79.899 Other long term (current) drug therapy; Z83.3 Family history of diabetes mellitus; G89.29 Other chronic pain; M19.90 Unspecified osteoarthritis, unspecified site; W18.39XA Other fall on same level, initial encounter; Y93.89 Activity, other specified; Y92.89 Other specified places as the place of occurrence of the external cause; Y99.8 Other external cause status
CPT/HCPCS: 36415; 70450; 71045; 72125; 80048; 80053; 80061; 81001; 83735; 83880; 84100; 84443; 84484; 85025; 87426; 90471; 90715; 93306; G0378; G0379; U0003; U0005; 99285-25